=== PATIENT | male | born 1960 | race Caucasian/White ===

== ENCOUNTER 2017-01-30 09:09 | Emergency (ER) | payer OTHER ==
--- NOTE | 2017-01-30 10:01 | DIAGNOSTIC IMAGING REPORT ---
PROCEDURE: XR CHEST 2 VIEW INDICATION: SHORTNESS OF BREATH TECHNIQUE: Two views. COMPARISON: None. FINDINGS: The cardiomediastinal contour and central vasculature are within normal limits. The lungs are mildly hyperexpanded and mildly hyperlucent in the upper lobes, but otherwise clear without focal consolidation, pleural effusion, or pneumothorax. The visualized osseous structures are intact. IMPRESSION: 1. Changes of early emphysema. 2. No acute process.
--- NOTE | 2017-01-30 10:45 | ED ORDER SUMMARY ---
..... Patient: ALESSIA CA OrderSheet [facility] VisitID: [id number] [address] [place] [address] 56y, M Registration Date/Time: 01/30/2017 ORDER SHEET Weight: 87.9 kg (stated) Allergies: No Known Drug Allergy GENERAL ORDERS: Chest 2V Urgent (09:45 01/30/2017 Alexandre Sandoval) (Ack 9:47 PWeiler ER Tech1) (10:00 JSanders R.N.) MEDICATION ORDERS: DuoNeb Neb Tx 1 unit dose (NOW) (09:46 01/30/2017 Alexandre Sadnoval) (10:02 MNance) Prednisolone PO 60 mg (NOW) (10:35 01/30/2017 Alexandre Sandoval) (Ack 10:42 JSanders R.N.) (10:47 JSanders R.N.) IV FLUIDS: ORDER SHEET NOTES: [Electronically signed by Lety Rahman R.N. (10:58 01/30/2017)] [Electronically signed by Manuel Guzman Dr. (21:25 02/01/2017)] [Electronically locked/signed by Lety Rahman R.N. (10:58 01/30/2017)]
--- NOTE | 2017-01-30 10:45 | ED NURSING NOTES ---
Clinical Report - Nurses [facility] [address] [place] [address] 01/30/2017 9:13 [id number] Triage time 09:Jan 30 2017. Acuity: LEVEL 3. Chief Complaint: SHORTNESS OF BREATH and (Patient got new breathing treatments on Monday, since then he has been having a hard time getting a full breath, with anxiety related). 09:30 01/30/17. SEPSIS SCREEN: Sepsis Screen. Negative (no infection suspected/documented). KANDIS COMA SCORE: [place] Coma Scale: 15- eyes open spontaneously (4); best verbal response- oriented x 4 (5); best motor response- obeys commands (6). --09:30 Lety Rahman R.N. 09:17 01/30/17. BP: 143/107 (regular adult cuff) taken on the left arm, while sitting. HR: 85. RR: 20. O2 saturation: 99% on room air. Temp: 97.8 F (oral). Pain level now: 0/10. --09:30 Lety Rahman R.N. Weight: 87.9 kg stated. Height/Length: 68 inches Per Patient. BMI: 29.5. --10:18 Lety Rahman R.N. Medications ProAir HFA Inhalation. --09:24 Lety Rahman R.N. Symbicort Inhalation. --09:24 Lety Rahman R.N. Dulera Inhalation. --09:25 Lety Rahman R.N. Ventolin HFA Inhalation. --09:25 Lety Rahman R.N. Ibuprofen Oral (Tablet 600 mg) 1 tablet, PRN. --09:25 Lety Rahman R.N. Meloxicam Oral (Tablet 15 mg) 1 tablet, daily. --09:26 Lety Rahman R.N. Allergies No Known Drug Allergy. --09:24 Lety Rahman R.N. History Arrived by private vehicle. Historian: patient. Primary physician (Dr Mendoza). Onset. (Monday this week stopped smoking marijuana on ). 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 PAST MEDICAL HX: Asthma. SOCIAL HX: Former smoker, end date 12/2016. History of weekly drug use: marijuana. Recently used drugs days ago. No alcohol use. No infectious disease exposure. ABUSE ASSESSMENT: No report of abuse. --09:30 Lety Rahman R.N. PROBLEMS: Anxiety attack. Arthritis. --09:28 Lety Rahman R.N. ADDITIONAL SURGERIES: no known surgeries. Interventions ID band on patient. To treatment room. --09:30 Lety Rahman R.N. PHYSICAL ASSESSMENT Ambulatory to room. Patient gowned. GENERAL / NEURO / PSYCH: Alert. Oriented X 4. HEENT: Mucous membranes are pink. RESPIRATORY: No respiratory distress. Respirations not labored. Chest nontender. Expiratory wheezes present. CVS: Normal sinus rhythm noted. Capillary refill less than 2 seconds. GI / : Abdomen soft and nontender. Bowel sounds within normal limits. SKIN: Skin is warm. Normal skin turgor. --09:30 Lety Rahman R.N. NURSING PROGRESS NOTES The plan of care for this patient has been created. Monitoring of patient in place. Patient gowned. Head of bed elevated. Reassurance given. Two patient identifiers checked. Call light placed in reach. Side rails up x 1. Bed placed in lowest position. Brakes of bed on. Patient ready for evaluation- chart flagged and ED physician notified. --09:30 Lety Rahman R.N. 09:59 01/30/17. BP: 130/86 (regular adult cuff) taken on the left arm, while sitting. HR: 72. RR: 20. O2 saturation: 99% on room air. Pain level now: 0/10. --10:00 Lety Rahman R.N. 10:02 01/30/2017 Duoneb (Ipratropium-Albuterol) Neb TX 1 unit dose given. --10:02 Nabeel Lang ( RT in with patient giving breathing treatment). --10:07 Lety Rahman R.N. ( RT finished breathing treatment, patient says he is breathing much better, requested lights out so he can sleep a little). --10:17 Lety Rahman R.N. 10:47 01/30/2017 Prednisolone PO Tablets 60 mg given. Allergies verified and confirmed 5 rights. --10:47 Lety Rahman R.N. 10:30 01/30/17. BP: 147/106 (regular adult cuff) taken on the left arm, while sitting. HR: 80. RR: 18. O2 saturation: 100% on room air. Pain level now: 0/10. --10:49 Lety Rahman R.N. DISPOSITION / DISCHARGE 10:58 01/30/17. Departure time: 10:58 Jan 30 2017. Condition at departure: improved. No learning barriers present. Discharge instructions provided and reviewed with the patient. Reviewed medication(s) side effects, precautions and dosing information. Prescription(s) given to the patient. Patient verbalized understanding. Written instructions provided in Yi. The patient was discharged by the physician. He was discharged home. He left the Emergency Department ambulatory and via private vehicle. Patient driving. --10:58 Lety Rahman R.N. 10:56 01/30/17. BP: 130/97 (regular adult cuff) taken on the left arm, while sitting. HR: 80. RR: 18. O2 saturation: 100% on room air. Temp: 98.4 F (oral). Pain level now: 0/10. --10:58 Lety Rahman R.N. Locked/Released at 01/30/2017 10:58 by Lety Rahman R.N.
--- NOTE | 2017-01-30 10:45 | ED CLINICAL REPORT ---
Clinical Report - Physicians/Mid Levels [facility] [address] [place] [address] 01/30/2017 9:13 Patient: ALESSIA CA Time Seen: 0938. Arrived- By private vehicle. Historian- patient. HISTORY OF PRESENT ILLNESS Chief Complaint: HISTORY OF ASTHMA. This started past several days and is still present. It was abrupt in onset and has been constant and waxing/waning but is not gone now. The dyspnea is described as moderate. He has had dyspnea at rest. No cough, sputum production, orthopnea or chest pain or discomfort. See nurses notes for current asthma threapy. Asthma triggers: unknown. Takes asthma medications. (no hemoptysis, hematemesis, recent trauma, recent surgery, or leg swelling.). Similar symptoms previously: Recent medical care: The patient was seen recently in a clinic. ( started on meloxicam for arthritis). REVIEW OF SYSTEMS All systems otherwise negative, except as recorded above. PAST HISTORY See nurses notes. Has not had recent surgery or recent ND. No history of CHF, cancer, DVT or pulmonary embolism. Not taking estrogens. Does not have advanced age as a risk factor or immobility as a risk factor. Is not obese. SOCIAL HISTORY Never smoker. History of drug use stopped marijuana about 2 weeks ago. No alcohol use. No recent travel. Is a local resident. likes to [employer]. FAMILY HISTORY Negative. ADDITIONAL NOTES The nursing notes have been reviewed. PHYSICAL EXAM Vital Signs: 01/30/2017 09:17 BP: 143/107. HR: 85. RR: 20. O2 saturation: 99%. Temp: 97.8 F. Pain level now: 0/10. Oxygen saturation normal. Appearance: Alert. No acute distress. Eyes: Pupils equal, round and reactive to light. Eyes normal inspection. ENT: Ears normal. Nose normal. Pharynx normal. Uvula midline. Neck: Normal inspection. Neck supple. CVS: Normal heart rate and rhythm. Heart sounds normal. Pulses normal. Respiratory: No respiratory distress. Mildly prolonged expirations. No wheezes, stridor, rales or rhonchi. Abdomen: Soft and nontender. No organomegaly. Skin: Skin warm and dry. Normal skin color. No rash. Normal skin turgor. Extremities: Extremities exhibit normal ROM. No lower extremity edema. No calf tenderness. No lower extremity edema. Neuro: Oriented X 3. No motor deficit. No sensory deficit. LABS, X-RAYS, AND EKG Chest X-ray: (PROCEDURE: XR CHEST 2 VIEW INDICATION: SHORTNESS OF BREATH TECHNIQUE: Two views. COMPARISON: None. FINDINGS: The cardiomediastinal contour and central vasculature are within normal limits. The lungs are mildly hyperexpanded and mildly hyperlucent in the upper lobes, but otherwise clear without focal consolidation, pleural effusion, or pneumothorax. The visualized osseous structures are intact. IMPRESSION: 1. Changes of early emphysema. 2. No acute process.). Views: PA and lateral. The X-rays were independently viewed by me and interpreted by the radiologist. The X-rays were discussed with the radiologist (via pacs). Prior films were not available for comparison. PROGRESS AND PROCEDURES Course of Care: The patient is a pleasant 56-year-old male with past medical history significant for asthma presenting for evaluation of acute asthma exacerbation. Patient reports that he has been using his inhaler for the past few days however has not had significant relief today. No other signs of on patient's examination. The patient does not respond appropriately to breathing treatments, will evaluate for other etiologies of the patient's shortness of breath. Because of the prolonged course of the patient's asthma exacerbation, chest x-ray was ordered. Patient is agreeable to the treatment and plan. Breathing treatment as been provided. Patient reports significant improvement with his symptoms. Patient with improved respiratory symptoms. Patient longer has prolonged respiratory phase. Chest x-rays been reviewed. No acute consolidations. I discussion with patient in regards to asthma triggers and avoidance of these triggers. Discussed with the patient is workup here in the emergency department to home care, follow-up, and return precautions. All questions have been answered. The patient expressed understanding of these instructions and was agreeable to them. Do not feel symptoms here today are caused by acute myocardial infarction, pulmonary embolism. Patient is resting in bed and in no acute distress upon reexamination. Patient is stable for outpatient management and treatment. CLINICAL IMPRESSION 01/30/2017 09:59 BP: 130/86. HR: 72. RR: 20. O2 saturation: 99%. Pain level now: 0/10. Blood pressure normal. Oxygen saturation normal. Mild persistent asthma with an acute exacerbation. No status asthmaticus. INSTRUCTIONS Warnings: GENERAL WARNINGS: Return or contact your physician immediately if your condition worsens or changes unexpectedly, if not improving as expected, or if other problems arise. Specifically return if pain, vomiting, bleeding, breathing difficulty or fever. Your Current Medications: CONTINUE TAKING THE FOLLOWING MEDICATIONS: Dulera Inhalation. Ibuprofen Oral : Tablet 600 mg, 1 tablet PRN. Meloxicam Oral : Tablet 15 mg, 1 tablet daily. ProAir HFA Inhalation. Symbicort Inhalation. Ventolin HFA Inhalation. Prescription Medications: Prednisone 50 mg: take 1 orally for 4 days. Dispense sufficient quantity. No refills. Follow-up: Return to the emergency department as needed. Follow up with your doctor in three days. Reason for referral: recheck today's concerns. Summary of care provided to patient via paper. Screening today revealed the patient's blood pressure to be in the normal range. The patient should follow up with a primary care provider for blood pressure management. Understanding of the discharge instructions verbalized by patient. (Electronically signed by Manuel Guzman Dr. 02/01/2017 21:25)
--- NOTE | 2017-01-30 10:45 | ED ORDER SUMMARY ---
..... Patient: ALESSIA CA OrderSheet [facility] VisitID: [id number] [address] [place] [address] 56y, M Registration Date/Time: 01/30/2017 ORDER SHEET Weight: 87.9 kg (stated) Allergies: No Known Drug Allergy GENERAL ORDERS: Chest 2V Urgent (09:45 01/30/2017 Alexandre Sandoval) (Ack 9:47 PWeiler ER Tech1) (10:00 JSanders R.N.) MEDICATION ORDERS: DuoNeb Neb Tx 1 unit dose (NOW) (09:46 01/30/2017 Alexandre Sandoval) (10:02 MNance) Prednisolone PO 60 mg (NOW) (10:35 01/30/2017 Alexandre Sandoval) (Ack 10:42 JSanders R.N.) (10:47 JSanders R.N.) IV FLUIDS: ORDER SHEET NOTES: [Electronically signed by Lety Rahman R.N. (10:58 01/30/2017)] [Electronically signed by Manuel Guzman Dr. (21:25 02/01/2017)] [Electronically locked/signed by Lety Rahman R.N. (10:58 01/30/2017)]
--- NOTE | 2017-01-30 10:45 | ED NURSING NOTES ---
Clinical Report - Nurses [facility] [address] [place] [address] 01/30/2017 9:13 [id number] Triage time 09:Jan 30 2017. Acuity: LEVEL 3. Chief Complaint: SHORTNESS OF BREATH and (Patient got new breathing treatments on Monday, since then he has been having a hard time getting a full breath, with anxiety related). 09:30 01/30/17. SEPSIS SCREEN: Sepsis Screen. Negative (no infection suspected/documented). KANDIS COMA SCORE: [place] Coma Scale: 15- eyes open spontaneously (4); best verbal response- oriented x 4 (5); best motor response- obeys commands (6). --09:30 Lety Rahman R.N. 09:17 01/30/17. BP: 143/107 (regular adult cuff) taken on the left arm, while sitting. HR: 85. RR: 20. O2 saturation: 99% on room air. Temp: 97.8 F (oral). Pain level now: 0/10. --09:30 Lety Rahman R.N. Weight: 87.9 kg stated. Height/Length: 68 inches Per Patient. BMI: 29.5. --10:18 Lety Rahman R.N. Medications ProAir HFA Inhalation. --09:24 Lety Rahman R.N. Symbicort Inhalation. --09:24 Lety Rahman R.N. Dulera Inhalation. --09:25 Lety Rahman R.N. Ventolin HFA Inhalation. --09:25 Lety Rahman R.N. Ibuprofen Oral (Tablet 600 mg) 1 tablet, PRN. --09:25 Lety Rahman R.N. Meloxicam Oral (Tablet 15 mg) 1 tablet, daily. --09:26 Lety Rahman R.N. Allergies No Known Drug Allergy. --09:24 Lety Rahman R.N. History Arrived by private vehicle. Historian: patient. Primary physician (Dr Mendoza). Onset. (Monday this week stopped smoking marijuana on ). 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 PAST MEDICAL HX: Asthma. SOCIAL HX: Former smoker, end date 12/2016. History of weekly drug use: marijuana. Recently used drugs days ago. No alcohol use. No infectious disease exposure. ABUSE ASSESSMENT: No report of abuse. --09:30 Lety Rahman R.N. PROBLEMS: Anxiety attack. Arthritis. --09:28 Lety Rahman R.N. ADDITIONAL SURGERIES: no known surgeries. Interventions ID band on patient. To treatment room. --09:30 Lety Rahman R.N. PHYSICAL ASSESSMENT Ambulatory to room. Patient gowned. GENERAL / NEURO / PSYCH: Alert. Oriented X 4. HEENT: Mucous membranes are pink. RESPIRATORY: No respiratory distress. Respirations not labored. Chest nontender. Expiratory wheezes present. CVS: Normal sinus rhythm noted. Capillary refill less than 2 seconds. GI / : Abdomen soft and nontender. Bowel sounds within normal limits. SKIN: Skin is warm. Normal skin turgor. --09:30 Lety Rahman R.N. NURSING PROGRESS NOTES The plan of care for this patient has been created. Monitoring of patient in place. Patient gowned. Head of bed elevated. Reassurance given. Two patient identifiers checked. Call light placed in reach. Side rails up x 1. Bed placed in lowest position. Brakes of bed on. Patient ready for evaluation- chart flagged and ED physician notified. --09:30 Lety Rahman R.N. 09:59 01/30/17. BP: 130/86 (regular adult cuff) taken on the left arm, while sitting. HR: 72. RR: 20. O2 saturation: 99% on room air. Pain level now: 0/10. --10:00 Lety Rahman R.N. 10:02 01/30/2017 Duoneb (Ipratropium-Albuterol) Neb TX 1 unit dose given. --10:02 Nabeel Lang ( RT in with patient giving breathing treatment). --10:07 Lety Rahman R.N. ( RT finished breathing treatment, patient says he is breathing much better, requested lights out so he can sleep a little). --10:17 Lety Rahman R.N. 10:47 01/30/2017 Prednisolone PO Tablets 60 mg given. Allergies verified and confirmed 5 rights. --10:47 Lety Rahman R.N. 10:30 01/30/17. BP: 147/106 (regular adult cuff) taken on the left arm, while sitting. HR: 80. RR: 18. O2 saturation: 100% on room air. Pain level now: 0/10. --10:49 Lety Rahman R.N. DISPOSITION / DISCHARGE 10:58 01/30/17. Departure time: 10:58 Jan 30 2017. Condition at departure: improved. No learning barriers present. Discharge instructions provided and reviewed with the patient. Reviewed medication(s) side effects, precautions and dosing information. Prescription(s) given to the patient. Patient verbalized understanding. Written instructions provided in Kyrgyz. The patient was discharged by the physician. He was discharged home. He left the Emergency Department ambulatory and via private vehicle. Patient driving. --10:58 Lety Rahman R.N. 10:56 01/30/17. BP: 130/97 (regular adult cuff) taken on the left arm, while sitting. HR: 80. RR: 18. O2 saturation: 100% on room air. Temp: 98.4 F (oral). Pain level now: 0/10. --10:58 Lety Rahman R.N. Locked/Released at 01/30/2017 10:58 by Lety Rahman R.N.
--- NOTE | 2017-02-01 21:25 | ED MAR SUMMARY ---
..... Medication Administration Record [facility] [address] [place] [address] Patient: ALESSIA CA Visit ID: [id number] 56y, M Weight: 87.9 kg Height/Length: 68 in BMI: 29.5 ALLERGIES: No Known Drug Allergy Given 10:02 01/30/2017 Nabeel Lang, Medication Administered: DUONEB [NEB TX] (IPRATROPIUM-ALBUTEROL), Dose: 1 unit dose Neb TX. Medication Ordered: DuoNeb Neb Tx 1 unit dose (NOW). Given 10:47 01/30/2017 Lety Rahman R.N. Medication Administered: PREDNISOLONE [PO], Dose: 60 mg Tablets PO. Medication Ordered: Prednisolone PO 60 mg (NOW).
--- NOTE | 2017-02-01 21:25 | ED MED RECONCILIATION SUMMARY ---
Patient: ALESSIA CA Medication Reconciliation Report [facility] VisitID: [id number] [address] [place] [address] 56y, M Registration Date/Time: 01/30/2017 Weight: 87.9 kg Height/Length: 68 in. BMI: 29.5 ALLERGIES: No Known Drug Allergy The patient's Home Medications are listed below: CONTINUE TAKING THE FOLLOWING MEDICATIONS: Dulera Inhalation Ibuprofen Oral (600 mg) 1 tablet, PRN Meloxicam Oral (15 mg) 1 tablet, daily ProAir HFA Inhalation Symbicort Inhalation Ventolin HFA Inhalation The source(s) of the original Home Medication information: Not obtained. The following Medications were given to the patient in the Emergency Department: Duoneb [Neb Tx] Neb TX 1 unit dose, administered: 01/30/2017 10:02:00 AM Prednisolone [PO] PO 60 mg, administered: 01/30/2017 10:47:00 AM The following Medications were prescribed to the patient: Prednisone 50 mg: take 1 orally for 4 days. Dispense sufficient quantity. No refills. -- Manuel Guzman Dr.
--- NOTE | 2017-02-01 21:25 | ED MAR SUMMARY ---
..... Medication Administration Record [facility] [address] [place] [address] Patient: ALESSIA CA Visit ID: [id number] 56y, M Weight: 87.9 kg Height/Length: 68 in BMI: 29.5 ALLERGIES: No Known Drug Allergy Given 10:02 01/30/2017 Nabeel Lang, Medication Administered: DUONEB [NEB TX] (IPRATROPIUM-ALBUTEROL), Dose: 1 unit dose Neb TX. Medication Ordered: DuoNeb Neb Tx 1 unit dose (NOW). Given 10:47 01/30/2017 Lety Rahman R.N. Medication Administered: PREDNISOLONE [PO], Dose: 60 mg Tablets PO. Medication Ordered: Prednisolone PO 60 mg (NOW).
--- NOTE | 2017-02-01 21:25 | ED MED RECONCILIATION SUMMARY ---
Patient: ALESSIA CA Medication Reconciliation Report [facility] VisitID: [id number] [address] [place] [address] 56y, M Registration Date/Time: 01/30/2017 Weight: 87.9 kg Height/Length: 68 in. BMI: 29.5 ALLERGIES: No Known Drug Allergy The patient's Home Medications are listed below: CONTINUE TAKING THE FOLLOWING MEDICATIONS: Dulera Inhalation Ibuprofen Oral (600 mg) 1 tablet, PRN Meloxicam Oral (15 mg) 1 tablet, daily ProAir HFA Inhalation Symbicort Inhalation Ventolin HFA Inhalation The source(s) of the original Home Medication information: Not obtained. The following Medications were given to the patient in the Emergency Department: Duoneb [Neb Tx] Neb TX 1 unit dose, administered: 01/30/2017 10:02:00 AM Prednisolone [PO] PO 60 mg, administered: 01/30/2017 10:47:00 AM The following Medications were prescribed to the patient: Prednisone 50 mg: take 1 orally for 4 days. Dispense sufficient quantity. No refills. -- Manuel Guzman Dr.
--- NOTE | 2017-02-01 21:25 | ED DISCHARGE INSTRUCTIONS ---
Patient: ALESSIA CA General Instructions [facility] VisitID: [id number] [place] [address] 56y, M Registration Date/Time: 01/30/2017 01/30/2017 09:59 BP: 130/86. HR: 72. RR: 20. O2 saturation: 99%. Pain level now: 0/10. Blood pressure normal. Oxygen saturation normal. Mild persistent asthma with an acute exacerbation. No status asthmaticus. INSTRUCTIONS Warnings: GENERAL WARNINGS: Return or contact your physician immediately if your condition worsens or changes unexpectedly, if not improving as expected, or if other problems arise. Specifically return if pain, vomiting, bleeding, breathing difficulty or fever. Your Current Medications: CONTINUE TAKING THE FOLLOWING MEDICATIONS: Dulera Inhalation. Ibuprofen Oral : Tablet 600 mg, 1 tablet PRN. Meloxicam Oral : Tablet 15 mg, 1 tablet daily. ProAir HFA Inhalation. Symbicort Inhalation. Ventolin HFA Inhalation. Prescription Medications: Prednisone 50 mg: take 1 orally for 4 days. Dispense sufficient quantity. No refills. Follow-up: Return to the emergency department as needed. Follow up with your doctor in three days. Reason for referral: recheck today's concerns. Summary of care provided to patient via paper. Screening today revealed the patient's blood pressure to be in the normal range. The patient should follow up with a primary care provider for blood pressure management. Understanding of the discharge instructions verbalized by patient. ADDITIONAL INFORMATION Asthma [Adult] Asthma is a disease where the small air passages within the lung go into spasm and restrict the flow of air. Inflammation and swelling of the airways cause further restriction. During an acute asthma attack, these factors cause difficulty breathing, wheezing, cough and chest tightness. An asthma attack can be triggered by many things. Common triggers include the common cold, bronchitis, pneumonia, irritants such as smoke or pullutants in the air, emotional upset and heavy exercise. Inmany adults with asthma, allergies todust, mold, pollen and animal dander can cause an asthma attack. Skipping doses of daily asthma medicine can also bring on an asthma attack. Asthma can be controlled with proper medicines and decreased exposure to known allergens. Home Care: Take prescribed medicine exactly at the times advised. If you have a hand-held inhaler or aerosol breathing medicine, do not use it more than once every four hours, unless told to do so. (If you need this medicine more than every four hours, you may need to return to the Emergency Room.) If prescribed an antibiotic or prednisone, take all of the medicine even if you are feeling better after a few days. Do not smoke. Avoid being exposed to the smoke of others. Some persons with asthma have worsening of their symptoms when they take aspirin and non-steroidal medicines like ibuprofen (Motrin, Advil) and naproxen (Aleve, Naprosyn). Talk to your doctor if you think this may apply to you. Acetaminophen (Tylenol)should be safe to use. Follow Up with your doctor, or as advised by our staff. Always bring all of your current medicines with you for your doctor to see. If you do not already have one, talk to your doctor about developing a personalized "Asthma Action Plan." [NOTE: A pneumococcal vaccine and yearly flu shot (every fall) are recommended. Ask your doctor about this.] Get Prompt Medical Attention if any of the following occur: Increased wheezing or shortness of breath Need to use your inhalers more often than usual without relief Fever of 100.4F (38C) or higher, or as directed by your healthcare provider Coughing up lots of dark-colored or bloody sputum (mucus) Chest pain with each breath You do not start to improve within 24 hours Call 911 If Any Of The Following Occur : Trouble walking or talking because of shortness of breath If you use a peak flow meter andyou are still in the red zone (less than 50 percent) 15 minutes after using inhaler medication Lips or fingernails turning tinoco or blue Prednisone Oral tablet What is this medicine? PREDNISONE (PRED ni sone) is a corticosteroid. It is commonly used to treat inflammation of the skin, joints, lungs, and other organs. Common conditions treated include asthma, allergies, and arthritis. It is also used for other conditions, such as blood disorders and diseases of the adrenal glands. How should I use this medicine? Take this medicine by mouth with a glass of water. Follow the directions on the prescription label. Take this medicine with food. If you are taking this medicine once a day, take it in the morning. Do not take more medicine than you are told to take. Do not suddenly stop taking your medicine because you may develop a severe reaction. Your doctor will tell you how much medicine to take. If your doctor wants you to stop the medicine, the dose may be slowly lowered over time to avoid any side effects. Talk to your food service counter clerk regarding the use of this medicine in children. Special care may be needed. What side effects may I notice from receiving this medicine? Side effects that you should report to your doctor or health career information specialist as soon as possible: allergic reactions like skin rash, itching or hives, swelling of the face, lips, or tongue changes in emotions or moods changes in vision depressed mood eye pain fever or chills, cough, sore throat, pain or difficulty passing urine increased thirst swelling of ankles, feet Side effects that usually do not require medical attention (report to your doctor or health career information specialist if they continue or are bothersome): confusion, excitement, restlessness headache nausea, vomiting skin problems, acne, thin and shiny skin trouble sleeping weight gain What may interact with this medicine? Do not take this medicine with any of the following medications: metyrapone mifepristone This medicine may also interact with the following medications: aminoglutethimide amphotericin B aspirin and aspirin-like medicines barbiturates certain medicines for diabetes, like glipizide or glyburide cholestyramine cholinesterase inhibitors cyclosporine digoxin diuretics ephedrine female hormones, like estrogens and control pills isoniazid ketoconazole NSAIDS, medicines for pain and inflammation, like ibuprofen or naproxen phenytoin rifampin toxoids vaccines warfarin What if I miss a dose? If you miss a dose, take it as soon as you can. If it is almost time for your next dose, talk to your doctor or health career information specialist. You may need to miss a dose or take an extra dose. Do not take double or extra doses without advice. Where should I keep my medicine? Keep out of the reach of children. Store at room temperature between 15 and 30 degrees C (59 and 86 degrees F). Protect from light. Keep container tightly closed. Throw away any unused medicine after the expiration date. What should I tell my health care provider before I take this medicine? They need to know if you have any of these conditions: Jane's syndrome diabetes glaucoma heart disease high blood pressure infection (especially a virus infection such as chickenpox, cold sores, or herpes) kidney disease liver disease mental illness myasthenia gravis osteoporosis seizures stomach or intestine problems thyroid disease an unusual or allergic reaction to lactose, prednisone, other medicines, foods, dyes, or preservatives or trying to get breast-feeding What should I watch for while using this medicine? Visit your doctor or health career information specialist for regular checks on your progress. If you are taking this medicine over a prolonged period, carry an identification card with your name and address, the type and dose of your medicine, and your doctor's name and address. This medicine may increase your risk of getting an infection. Tell your doctor or health career information specialist if you are around anyone with measles or chickenpox, or if you develop sores or blisters that do not heal properly. If you are going to have surgery, tell your doctor or health career information specialist that you have taken this medicine within the last twelve months. Ask your doctor or health career information specialist about your diet. You may need to lower the amount of salt you eat. This medicine may affect blood sugar levels. If you have diabetes, check with your doctor or health career information specialist before you change your diet or the dose of your diabetic medicine. You have been given the following additional information: Asthma, Acute (Adult) Prednisone Oral tablet (Electronically signed by Manuel Guzman Dr. 02/01/2017 21:25)
--- NOTE | 2017-02-01 21:25 | ED DISCHARGE INSTRUCTIONS ---
Patient: ALESSIA CA General Instructions [facility] VisitID: [id number] [place] [address] 56y, M Registration Date/Time: 01/30/2017 01/30/2017 09:59 BP: 130/86. HR: 72. RR: 20. O2 saturation: 99%. Pain level now: 0/10. Blood pressure normal. Oxygen saturation normal. Mild persistent asthma with an acute exacerbation. No status asthmaticus. INSTRUCTIONS Warnings: GENERAL WARNINGS: Return or contact your physician immediately if your condition worsens or changes unexpectedly, if not improving as expected, or if other problems arise. Specifically return if pain, vomiting, bleeding, breathing difficulty or fever. Your Current Medications: CONTINUE TAKING THE FOLLOWING MEDICATIONS: Dulera Inhalation. Ibuprofen Oral : Tablet 600 mg, 1 tablet PRN. Meloxicam Oral : Tablet 15 mg, 1 tablet daily. ProAir HFA Inhalation. Symbicort Inhalation. Ventolin HFA Inhalation. Prescription Medications: Prednisone 50 mg: take 1 orally for 4 days. Dispense sufficient quantity. No refills. Follow-up: Return to the emergency department as needed. Follow up with your doctor in three days. Reason for referral: recheck today's concerns. Summary of care provided to patient via paper. Screening today revealed the patient's blood pressure to be in the normal range. The patient should follow up with a primary care provider for blood pressure management. Understanding of the discharge instructions verbalized by patient. ADDITIONAL INFORMATION Asthma [Adult] Asthma is a disease where the small air passages within the lung go into spasm and restrict the flow of air. Inflammation and swelling of the airways cause further restriction. During an acute asthma attack, these factors cause difficulty breathing, wheezing, cough and chest tightness. An asthma attack can be triggered by many things. Common triggers include the common cold, bronchitis, pneumonia, irritants such as smoke or pullutants in the air, emotional upset and heavy exercise. Inmany adults with asthma, allergies todust, mold, pollen and animal dander can cause an asthma attack. Skipping doses of daily asthma medicine can also bring on an asthma attack. Asthma can be controlled with proper medicines and decreased exposure to known allergens. Home Care: Take prescribed medicine exactly at the times advised. If you have a hand-held inhaler or aerosol breathing medicine, do not use it more than once every four hours, unless told to do so. (If you need this medicine more than every four hours, you may need to return to the Emergency Room.) If prescribed an antibiotic or prednisone, take all of the medicine even if you are feeling better after a few days. Do not smoke. Avoid being exposed to the smoke of others. Some persons with asthma have worsening of their symptoms when they take aspirin and non-steroidal medicines like ibuprofen (Motrin, Advil) and naproxen (Aleve, Naprosyn). Talk to your doctor if you think this may apply to you. Acetaminophen (Tylenol)should be safe to use. Follow Up with your doctor, or as advised by our staff. Always bring all of your current medicines with you for your doctor to see. If you do not already have one, talk to your doctor about developing a personalized "Asthma Action Plan." [NOTE: A pneumococcal vaccine and yearly flu shot (every fall) are recommended. Ask your doctor about this.] Get Prompt Medical Attention if any of the following occur: Increased wheezing or shortness of breath Need to use your inhalers more often than usual without relief Fever of 100.4F (38C) or higher, or as directed by your healthcare provider Coughing up lots of dark-colored or bloody sputum (mucus) Chest pain with each breath You do not start to improve within 24 hours Call 911 If Any Of The Following Occur : Trouble walking or talking because of shortness of breath If you use a peak flow meter andyou are still in the red zone (less than 50 percent) 15 minutes after using inhaler medication Lips or fingernails turning tinoco or blue Prednisone Oral tablet What is this medicine? PREDNISONE (PRED ni sone) is a corticosteroid. It is commonly used to treat inflammation of the skin, joints, lungs, and other organs. Common conditions treated include asthma, allergies, and arthritis. It is also used for other conditions, such as blood disorders and diseases of the adrenal glands. How should I use this medicine? Take this medicine by mouth with a glass of water. Follow the directions on the prescription label. Take this medicine with food. If you are taking this medicine once a day, take it in the morning. Do not take more medicine than you are told to take. Do not suddenly stop taking your medicine because you may develop a severe reaction. Your doctor will tell you how much medicine to take. If your doctor wants you to stop the medicine, the dose may be slowly lowered over time to avoid any side effects. Talk to your bulk materials handling plant operator regarding the use of this medicine in children. Special care may be needed. What side effects may I notice from receiving this medicine? Side effects that you should report to your doctor or health director critical care as soon as possible: allergic reactions like skin rash, itching or hives, swelling of the face, lips, or tongue changes in emotions or moods changes in vision depressed mood eye pain fever or chills, cough, sore throat, pain or difficulty passing urine increased thirst swelling of ankles, feet Side effects that usually do not require medical attention (report to your doctor or health director critical care if they continue or are bothersome): confusion, excitement, restlessness headache nausea, vomiting skin problems, acne, thin and shiny skin trouble sleeping weight gain What may interact with this medicine? Do not take this medicine with any of the following medications: metyrapone mifepristone This medicine may also interact with the following medications: aminoglutethimide amphotericin B aspirin and aspirin-like medicines barbiturates certain medicines for diabetes, like glipizide or glyburide cholestyramine cholinesterase inhibitors cyclosporine digoxin diuretics ephedrine female hormones, like estrogens and control pills isoniazid ketoconazole NSAIDS, medicines for pain and inflammation, like ibuprofen or naproxen phenytoin rifampin toxoids vaccines warfarin What if I miss a dose? If you miss a dose, take it as soon as you can. If it is almost time for your next dose, talk to your doctor or health director critical care. You may need to miss a dose or take an extra dose. Do not take double or extra doses without advice. Where should I keep my medicine? Keep out of the reach of children. Store at room temperature between 15 and 30 degrees C (59 and 86 degrees F). Protect from light. Keep container tightly closed. Throw away any unused medicine after the expiration date. What should I tell my health care provider before I take this medicine? They need to know if you have any of these conditions: Jane's syndrome diabetes glaucoma heart disease high blood pressure infection (especially a virus infection such as chickenpox, cold sores, or herpes) kidney disease liver disease mental illness myasthenia gravis osteoporosis seizures stomach or intestine problems thyroid disease an unusual or allergic reaction to lactose, prednisone, other medicines, foods, dyes, or preservatives or trying to get breast-feeding What should I watch for while using this medicine? Visit your doctor or health director critical care for regular checks on your progress. If you are taking this medicine over a prolonged period, carry an identification card with your name and address, the type and dose of your medicine, and your doctor's name and address. This medicine may increase your risk of getting an infection. Tell your doctor or health director critical care if you are around anyone with measles or chickenpox, or if you develop sores or blisters that do not heal properly. If you are going to have surgery, tell your doctor or health director critical care that you have taken this medicine within the last twelve months. Ask your doctor or health director critical care about your diet. You may need to lower the amount of salt you eat. This medicine may affect blood sugar levels. If you have diabetes, check with your doctor or health director critical care before you change your diet or the dose of your diabetic medicine. You have been given the following additional information: Asthma, Acute (Adult) Prednisone Oral tablet (Electronically signed by Manuel Guzman Dr. 02/01/2017 21:25)
== END 2017-01-30 10:58 | disposition home or self-care (01) ==
LOC: ED SRH 09:09
DX: J45.31 Mild persistent asthma with (acute) exacerbation (principal); Z79.51 Long term (current) use of inhaled steroids